=== PATIENT | female | born 1995 | race Caucasian/White ===

== ENCOUNTER 2018-08-02 06:46 | Day surgery (SDC) | payer OTHER ==
[2018-07-28 09:34] VITALS: BMI 38.6
[2018-08-02] MEDS ORDERED: Lidocaine 2% w Epi 1:100,000 Inj IJ ONE (07:42)
[2018-08-02] MEDS ORDERED: Lidocaine 1% Inj (20ml) ONE (07:42)
[2018-08-02] MEDS ORDERED: Bacitracin Ointment 30 GM TUBE ONE (07:42)
[2018-08-02] MEDS ORDERED: Lactated Ringer's 1,000 ML IV ONE (08:00)
[2018-08-02] MEDS ORDERED: EPINEPHrine 1:1000 Nasal Sol(30mL) ONE (08:06)
[2018-08-02] MEDS ORDERED: Bupivacaine 0.5% Inj(30mL) ONE (08:07)
[2018-08-02] MEDS ORDERED: methylPREDNISolone Depo 80 mg/ml Inj ONE (08:07)
[2018-08-02] MEDS ORDERED: Midazolam 2 MG/2 ML VIAL ONE (10:16)
[2018-08-02] MEDS ORDERED: Propofol 10 mg/ml Inj (20 ML) ONE (10:16)
[2018-08-02] MEDS ORDERED: Succinylcholine 200 mg/10 ml Inj IV ONE (10:17)
[2018-08-02] MEDS ORDERED: Rocuronium 10 mg/ml (5 ml) ONE ×2 (10:22→12:27)
[2018-08-02] MEDS ORDERED: Esmolol 100 mg/10ml Inj IV ONE (11:34)
[2018-08-02] MEDS ORDERED: Desflurane Inhalation Anesthetic Liq (240 ml) ONE (11:41)
[2018-08-02] MEDS ORDERED: Neostigmine 1:1000 (1 mg/ml) Inj ONE (13:15)
[2018-08-02] MEDS ORDERED: Lactated Ringer's 1,000 ML IV SCH (13:45)
[2018-08-02] MEDS: HYDROmorphone 0.5 mg/0.5 ml ISec IVP PRN ×3 (13:45→14:15)
--- NOTE | 2018-08-02 13:45 | PCM.SURG1 ---
Surgeon's Initial Post Op Note - Surgeon's Notes Surgeon: Jeanette Moctezuma MD Fish Trapper: Jenny Elam PA-C Type of Anesthesia: General Endo Pre-Operative Diagnosis: right hip labral tear Operative Findings: see op report Post-Operative Diagnosis: same as pre-op dx Operation Performed: Right hip arthroscopy, laral repair, debridement Specimen/Specimens Removed: none Estimated Blood Loss: EBL {In ML}: 4 Date of Surgery/Procedure: 08/02/18 Time of Surgery/Procedure: 12:30
[2018-08-02] MEDS ORDERED: Oxycodone/Acetaminophen 5/325 mg Tab PO PRN (13:48)
[2018-08-02 14:42] VITALS: RESP 18
[2018-08-02] MEDS ORDERED: Oxycodone/Acetaminophen 5/325 mg Tab PO ONE (16:50)
[2018-08-02 16:51] VITALS: O2SAT 100
[2018-08-02 17:39] VITALS: BP 112/67; PULSE 78; TEMP 97.6
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
--- NOTE | 2018-08-04 12:01 | RAD ---
Date of service: 08/02/2018 PROCEDURE: Fluoroscopic assistance in excess of 1 hour. HISTORY: RIGHT HIP ARTHROSCOPY COMPARISON: None TECHNIQUE: Standard protocol for this study/examination. FINDINGS: Total fluoroscopic time (continuous mode) utilized during the procedure 1422.9 seconds. IMPRESSION: Submitted images from the current procedure: 3.0
== END 2018-08-02 18:30 | disposition home or self-care (01) ==
LOC: H.OPSURG 06:46
PROVIDERS: ATTEND Orthopaedic Surgery
DX: M24.151 Other articular cartilage disorders, right hip (principal); M67.851 Other specified disorders of synovium, right hip; M65.851 Other synovitis and tenosynovitis, right thigh; M25.451 Effusion, right hip; E66.01 Morbid (severe) obesity due to excess calories
CPT/HCPCS: 29862; 29863; 29915; 88304; 88305; 97161; G8978; G8979; G8980; J0330; J0690; J1040; J1170; J2175; J2250; J2405; J2704; J2710; J2765; J3010; J7030; J7120